=== PATIENT | female | born 1985 | race Caucasian/White ===

== ENCOUNTER 2024-05-06 05:32 | Inpatient (IN) ==
[2024-05-06] MEDS: Lactated Ringers 1000 ml BAG 1,000 ML IV ONE (06:04)
[2024-05-06 06:20] LABS: ABS Eosinophils 0.1 10^3/uL (0.0-0.5); ABS Lymphocytes 2.3 10^3/uL (1.0-4.8); ABS Monocytes 0.6 10^3/uL (0.0-0.9); ABS Neutrophils 5.2 10^3/uL (1.5-7.6); ABS Nucleated RBC 0.01 10^3/ul; Eosinophil % 0.7 %; Hematocrit 37.5 % (35-45); Hemoglobin 13.2 g/dL (11.5-14.3); Lymphocyte % 28.4 %; Mean Corpuscular Hemoglobin 33.8 pg (27-33); Mean Corpuscular Hgb Conc 35.1 g/dL (31-36); Mean Corpuscular Volume 96.4 fL (80-97); Mean Platelet Volume 8.2 fL (7.5-11.2); Nucleated Red Blood Cells % 0.1 %/100WBC (0.0-0.8); Platelet Count 151 10^3/uL (150-450); Red Cell Distribution Width 12.5 % (12-17); White Blood Count 8.2 10^3/uL (3.8-11.8)
[2024-05-06] MEDS ORDERED: Morphine PF AMP (0.5MG/ML) 5 MG/10 ML AMP ONE (07:24)
[2024-05-06] MEDS ORDERED: fentaNYL 100 mcg/2 ml 50 MCG/ML VIAL ONE (07:24)
[2024-05-06] MEDS ORDERED: Ondansetron 4 mg VIAL 2 MG/ML 2 ml VIAL ONE (07:36)
[2024-05-06] MEDS ORDERED: Dexamethasone IV 4 MG/ML VIAL 1 ml VIAL ONE (07:36)
[2024-05-06] MEDS ORDERED: Phenylephrine 40 mcg/mL 10mL (400mcg) SYRINGE ONE (07:37)
[2024-05-06] MEDS ORDERED: Bupivacaine-MPF SPINAL 7.5 MG/ML - 2ML AMP ONE (07:37)
[2024-05-06] MEDS ORDERED: Oxytocin 10 UNITS/ML 1 ML VIAL ONE (07:37)
[2024-05-06] MEDS ORDERED: Acetaminophen IV 1 GM/100ML 1,000 MG/100 ML BAG IV PRN (09:05)
[2024-05-06] MEDS ORDERED: Naloxone 0.4 mg VIAL 0.4 mg/ml 1 ml VIAL IV PUSH PRN (09:05)
[2024-05-06] MEDS ORDERED: Dibucaine 1% OINT 28.35 GM TUBE PR PRN (10:00)
[2024-05-06] MEDS ORDERED: RHO D Immune Globulin (HUMAN) 300 MCG = 1,500 I.U. INJ IM PRN (10:00)
[2024-05-06] MEDS ORDERED: Witch Hazel PAD JAR TOPICAL PRN (10:00)
[2024-05-06] MEDS ORDERED: Lactated Ringers 1000 ml BAG 1,000 ML IV SCH (10:00)
[2024-05-06 10:12] LABS: Urine Appearance Clear; Urine Bilirubin Negative (Negative); Urine Blood Negative (Negative); Urine Color Light-Yellow; Urine Glucose Negative (Negative); Urine Ketones Negative (Negative); Urine Nitrite Negative (Negative); Urine Protein Trace (Negative); Urine Specific Gravity 1.006 (1.002-1.030); Urine Urobilinogen Negative (Negative)
[2024-05-06] MEDS: Oxytocin in LR 20,000 MILLI.UNIT/1,000 ML BAG IV SCH (10:26)
[2024-05-06] MEDS: Lactated Ringers 1000 ml BAG 1,000 ML IV SCH (10:26)
[2024-05-06 10:37] LABS: Urine Benzodiazepine Screen None Detected (None Detect); Urine Cannabinoids Screen None Detected (None Detect); Urine Opiates Screen None Detected (None Detect)
[2024-05-06] MEDS: Ondansetron 4 mg VIAL 2 MG/ML 2 ml VIAL IV PRN (14:36)
[2024-05-06] MEDS: Metoclopramide 5 MG/ML VIAL (10 mg) IV PRN (15:13)
[2024-05-07] MEDS: Sodium Citrate/Citric Acid LIQ 15 ML UDC PO ONE (07:27)
[2024-05-07] MEDS: ceFOXitin 2 GM IVPREMIX 2 GM/50 ML BAG IVPB ONE (07:27)
[2024-05-07 09:38] LABS: ABS Eosinophils 0.1 10^3/uL (0.0-0.5); ABS Lymphocytes 1.6 10^3/uL (1.0-4.8); ABS Monocytes 0.6 10^3/uL (0.0-0.9); ABS Neutrophils 9.2 10^3/uL (1.5-7.6); ABS Nucleated RBC 0.01 10^3/ul; Eosinophil % 0.6 %; Hematocrit 30.6 % (35-45); Hemoglobin 10.9 g/dL (11.5-14.3); Lymphocyte % 14.2 %; Mean Corpuscular Hemoglobin 34.5 pg (27-33); Mean Corpuscular Hgb Conc 35.6 g/dL (31-36); Mean Corpuscular Volume 96.7 fL (80-97); Mean Platelet Volume 8.2 fL (7.5-11.2); Nucleated Red Blood Cells % 0.1 %/100WBC (0.0-0.8); Platelet Count 136 10^3/uL (150-450); Red Blood Count 3.17 10^6/uL (3.63-4.92); Red Cell Distribution Width 12.5 % (12-17); White Blood Count 11.6 10^3/uL (3.8-11.8)
[2024-05-07] MEDS: Buffered Lidocaine 1% SYRIN 1 ml INTRADERM ONE (17:28)
[2024-05-08] MEDS: Measles, Mumps,Rubella VACC 0.5 ML/VIAL SUBCUT ONE (15:39)
[2024-05-08] MEDS: Glycerin ADULT 2.4 gm SUPP PR PRN (17:30)
== END 2024-05-09 12:40 | disposition home or self-care (01) | DRG 540 ==
LOC: MCHOB 05:32
PROVIDERS: ADMIT Obstetrics & Gynecology; ATTEND Obstetrics & Gynecology